=== PATIENT | female | born 1990 | race Caucasian/White ===

== ENCOUNTER 2018-03-25 14:30 | Emergency (ER) | payer BC ==
[2018-03-25 14:51] VITALS: BP 136/77; PULSE 90; TEMP 98.6; BMI 23.2
[2018-03-25 15:02] LABS: URINE APPEARANCE Clear; URINE BILIRUBIN Negative (NEGATIVE); URINE GLUCOSE (UA) Negative (NEGATIVE); URINE KETONE 1+ (NEGATIVE); URINE LEUK ESTERASE Negative (NEGATIVE); URINE NITRITE Negative (NEGATIVE); URINE PROTEIN Negative (NEGATIVE); URINE UROBILINOGEN 0.2 (0.2-1.0)
[2018-03-25 15:04] LABS: HCG,QUALITATIVE URINE NEGATIVE; URINE COLOR YELLOW
--- NOTE | 2018-03-25 15:06 | PDOC ---
History of Present Illness - General History Source: Patient Exam Limitations: No Limitations - History of Present Illness Initial Comments: 03/25/18 16:55 The patient is a 28 year old female with significant past medical history of chronic lower back pain who presents to the emergency department for evaluation of chest pain and SOB x 3 days. The patient reports intermittent episodes of left sided chest pain. She describes a pressure in left chest with no numbness, tingling, diaphoresis or radiation. 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 The patients PCP ( Dr. Gomez) referred her to visit the ED to rule out PE as the pain had also become pleuritic. The patient reports associated symptoms of SOB, lightheadedness, and nausea. She reports that the pain is not illicited by exertion and there are no exacerbating or alleviating factors. The patient has been taking control for 8 years, but denies taking any medication to alleviate symptoms. The patient reports that she has been under a significant amount of stress due to relationship issues with her boyfriend and the of her father suddenly 2 years ago which she has not coped with - however she does not believe stress or anxiety is the cause of her CP. She is concerned that her father was healthy and did not have any risk factors but had a sudden [place] and that she may suffer the same fate. Denies recent travel/immobilization The patient denies changes in vision, headache, chills, vomiting, diarrhea, and constipation. Denies dysuria, frequency, urgency, and hematuria. Allergies: NKDA Family History: Father: from [place] (age 62); Mother: HTN Surgical history: Breast Implants (2016) Social history: Social smoking and alcohol consumption. No reported drug use. PCP: Santi Gomez ([phone]) <Donald Gonzales - Last Filed: 03/25/18 17:17> <Myron Lemus - Last Filed: 03/25/18 18:38> - General Chief Complaint: Chest Pain Stated Complaint: POSSIBLE PE Time Seen by Provider: 03/25/18 14:51 Past History <Donald Gonzales - Last Filed: 03/25/18 17:17> - Past Medical History COPD: No DVT: No - Suicide/Smoking/Psychosocial Hx Smoking History: Never smoked Have you smoked in the past 12 months: Yes Number of Cigarettes Smoked Daily: 1 Information on smoking cessation initiated: Yes Hx Alcohol Use: Yes Drug/Substance Use Hx: No Substance Use Type: None <Myron Lemus - Last Filed: 03/25/18 18:38> - Past Medical History Allergies/Adverse Reactions: Allergies Allergy/AdvReac Type Severity Reaction Status Date / Time No Known Allergies Allergy Verified 03/25/18 14:54 Home Medications: Ambulatory Orders NK [No Known Home Medication] 03/17/15 Review of Systems - Review of Systems Able to Perform ROS?: Yes Comments:: GENERAL/CONSTITUTIONAL: (+)Fever. No chills. No weakness. HEAD, EYES, EARS, NOSE AND THROAT: No change in vision. No ear pain or discharge. No sore throat. GASTROINTESTINAL: (+)Nausea. No vomiting, diarrhea or constipation. GENITOURINARY: No dysuria, frequency, or change in urination. CARDIOVASCULAR: (+)Shortness of breath. No chest pain. RESPIRATORY: No cough, wheezing, or hemoptysis. MUSCULOSKELETAL: (+)Left sided chest pain. No neck or back pain. SKIN: No rash NEUROLOGIC: No headache, vertigo, loss of consciousness, or change in strength/ sensation. ENDOCRINE: No increased thirst. No abnormal weight change. HEMATOLOGIC/LYMPHATIC: No anemia, easy bleeding, or history of blood clots. ALLERGIC/IMMUNOLOGIC: No hives or skin allergy. <Donald Gonzales - Last Filed: 03/25/18 17:17> *Physical Exam - Vital Signs Last Vital Signs Temp Pulse Resp BP Pulse Ox 98.6 F 90 16 136/77 99 03/25/18 14:40 03/25/18 14:40 03/25/18 14:40 03/25/18 14:40 03/25/18 14:40 - Physical Exam Comments: GENERAL: Awake, alert, and fully oriented, in no acute distress HEAD: No signs of trauma EYES: PERRLA, EOMI, sclera anicteric, conjunctiva clear ENT: Auricles normal inspection, hearing grossly normal, nares patent, oropharynx clear without exudates. Moist mucosa NECK: Normal ROM, supple, no lymphadenopathy, JVD, or masses LUNGS: Breath sounds equal, clear to auscultation bilaterally. No wheezes, and no crackles HEART: Regular rate and rhythm, normal S1 and S2, no murmurs, rubs or gallops ABDOMEN: Soft, nontender, normoactive bowel sounds. No guarding, no rebound. No masses EXTREMITIES: Normal range of motion, no edema. No clubbing or cyanosis. No cords , erythema, or tenderness BACK: No midline spinal tenderness in cervical/thoracic/lumbar region NEUROLOGICAL: Normal speech, cranial nerves intact, negative pronator drift, 5/ 5 strength in all 4 extremities, normal sensation to light touch in all 4 extremities, normal cerebellar exam, normal gait, normal reflexes and tone SKIN: Warm, Dry, normal turgor, no rashes or lesions noted. <Donald Gonzales - Last Filed: 03/25/18 17:17> - Vital Signs Last Vital Signs Temp Pulse Resp BP Pulse Ox 98.6 F 90 16 136/77 99 03/25/18 14:40 03/25/18 14:40 03/25/18 14:40 03/25/18 14:40 03/25/18 14:40 <Myron Lemus - Last Filed: 03/25/18 18:38> Heart Score/ECG Review - History History: Slightly suspicious - Electrocardiogram EKG: Non specific repolarization disturbance - Age Age: </= 45 - Risk Factors Risk Factors Heart Score: Yes Positive family hx of cardiac disease Based on the list above the patient has:: 1-2 risk factors - Troponin Troponin: </= normal limit - Score Heart Score - Total: 2 #1 03/25/18 17:17 Twelve-lead EKG was performed and reviewed by me. Normal sinus rhythm, rate 89. Normal axis and intervals. No ST elevations. T wave flattening in leads III and aVF <Myron Lemus - Last Filed: 03/25/18 18:38> ED Treatment Course - LABORATORY CBC & Chemistry Diagram: 03/25/18 15:05 03/25/18 15:05 - ADDITIONAL ORDERS Additional order review: Laboratory Results 03/25/18 03/25/18 03/25/18 15:05 15:05 15:05 Sodium 135 L Potassium 3.5 Chloride 105 Carbon Dioxide 24 Anion Gap 6 L BUN 12 Creatinine < 0.8 Creat Clearance w eGFR > 60 Random Glucose 83 Calcium 8.7 Total Bilirubin 1.0 AST 18 ALT 15 Alkaline Phosphatase 44 Troponin I < 0.03 B-Natriuretic Peptide 50.08 Total Protein 7.0 Albumin 4.3 Urine Color Urine Appearance Urine pH Ur Specific [place] Urine Protein Urine Glucose (UA) Urine Ketones Urine Blood Urine Nitrite Urine Bilirubin Urine Urobilinogen Ur Leukocyte Esterase Urine HCG, Qual 03/25/18 14:49 Sodium Potassium Chloride Carbon Dioxide Anion Gap BUN Creatinine Creat Clearance w eGFR Random Glucose Calcium Total Bilirubin AST ALT Alkaline Phosphatase Troponin I B-Natriuretic Peptide Total Protein Albumin Urine Color Yellow Urine Appearance Clear Urine pH 7.0 Ur Specific [place] 1.020 Urine Protein Negative Urine Glucose (UA) Negative Urine Ketones 1+ H Urine Blood 2+ H Urine Nitrite Negative Urine Bilirubin Negative Urine Urobilinogen 0.2 Ur Leukocyte Esterase Negative Urine HCG, Qual Negative 03/25/18 15:05 RBC 4.51 MCV 84.5 MCHC 34.5 RDW 11.8 MPV 7.7 Neutrophils % 67.9 Lymphocytes % 26.4 Monocytes % 5.1 Eosinophils % 0.3 Basophils % 0.3 <Donald Gonzales - Last Filed: 03/25/18 17:17> - LABORATORY CBC & Chemistry Diagram: 03/25/18 15:05 03/25/18 15:05 - ADDITIONAL ORDERS Additional order review: Laboratory Results 03/25/18 14:49 Urine Color Yellow Urine Appearance Clear Urine pH 7.0 Ur Specific [place] 1.020 Urine Protein Negative Urine Glucose (UA) Negative Urine Ketones 1+ H Urine Blood 2+ H Urine Nitrite Negative Urine Bilirubin Negative Urine Urobilinogen 0.2 Ur Leukocyte Esterase Negative Urine HCG, Qual Negative <Myron Lemus - Last Filed: 03/25/18 18:38> Medical Decision Making - Medical Decision Making Consulted with Dr. Gomez at 17:15. <Donald Gonzales - Last Filed: 03/25/18 17:17> - Medical Decision Making 03/25/18 16:21 28-year-old female with no significant past medical history presents the emergency department with 3 days of intermittent left-sided chest pain associated with shortness of breath. Patient was sent in by her primary physician Dr. Gomez for a CTA to rule out pulmonary embolism given newly pleuritic nature of chest pain. Vitals unremarkable. Exam unremarkable. Differential includes but not limited to pulmonary embolism versus acute coronary syndrome versus pneumonia versus musculoskeletal pain versus anxiety. HS is 2. Plan: -labs -upt -cxr -cta -reassess -discuss w Dr. Gomez 03/25/18 17:10 Labs wnl, including neg trop CTA neg for PE CXR clear Possible MSK pain vs anxiety Placed a call to Dr. Gomez, awaiting a call back to discuss 03/25/18 18:[address] Gomez who wants the patient to follow-up with him within the next week. Patient feels well, requests discharge home. I discussed the physical exam findings, ancillary test results and final diagnoses with the patient. I answered all of the patient's questions. The patient was satisfied with the care received and felt comfortable with the discharge plan and treatment plan. The patient will call their primary care physician within 24 hours to arrange follow-up and will return to the Emergency Department with any new, persistent or worsening symptoms. <Myron Lemus - Last Filed: 03/25/18 18:38> *DC/Admit/Observation/Transfer - Attestations Scribe Attestion: Documentation prepared by Donald Gonzales, acting as medical aide for Myron Lemus MD. <Donald Gonzales - Last Filed: 03/25/18 17:17> - Discharge Dispostion Admit: No - Attestations Physician Attestion: 03/25/18 17:16 I, Dr. Myron Lemus MD, attest that this document has been prepared under my direction and personally reviewed by me in its entirety. I further attest, that it accurately reflects all work, treatment, procedures and medical decision -making performed by me. <Myron Lemus - Last Filed: 03/25/18 18:38> Diagnosis at time of Disposition: Chest pain - Discharge Dispostion Disposition: HOME Condition at time of disposition: Good - Referrals Referrals: Santi Gomez MD [Primary Care Provider] - - Patient Instructions Printed Discharge Instructions: DI for Chest Pain Additional Instructions: As discussed, follow-up with Dr. Gomez within 3-4 days. Return to the emergency department immediately if you have any new, worsening or concerning symptoms. - Post Discharge Activity
[2018-03-25 15:25] LABS: BASO % 0.3 % (0-2.0); EOS % 0.3 % (0-4.5); HEMATOCRIT 38.1 % (32.4-45.2); HEMOGLOBIN 13.1 GM/dl (10.7-15.3); LYMPH % 26.4 % (8-40); MCH 29.2 pg (25.7-33.7); MCHC 34.5 g/dl (32.0-36.0); MEAN CELL VOLUME 84.5 fl (80-96); MEAN PLT VOLUME 7.7 fl (7.5-11.1); MONO % 5.1 % (3.8-10.2); NEUT % 67.9 % (42.8-82.8); PLATELET COUNT 268 K/MM3 (134-434); RBC 4.51 M/mm3 (3.60-5.2); RDW 11.8 % (11.6-15.6); WHITE BLOOD COUNT 7.6 K/mm3 (4.0-10.8)
[2018-03-25 15:32] LABS: ALBUMIN 4.3 g/dl (3.5-5.0); ALK PHOS 44 U/L (32-92); ANION GAP 6 (8-16); BLOOD UREA NITROGEN 12 mg/dl (7-18); CALCIUM 8.7 mg/dl (8.4-10.2); CHLORIDE 105 mmol/L (98-107); CO2 24 mmol/L (22-28); GLUCOSE,RANDOM 83 mg/dl (74-106); POTASSIUM 3.5 mmol/L (3.5-5.1); SGOT/AST 18 U/L (10-42); SGPT/ALT 15 U/L (10-40); SODIUM 135 mmol/L (136-145)
[2018-03-25 15:47] LABS: CREATININE < 0.8 mg/dl (0.6-1.3)
[2018-03-25 17:54] LABS: URINE BACTERIA FEW /hpf (NEGATIVE); URINE WBC 0-2 (0-5)
--- NOTE | 2018-03-27 14:34 | EKG ---
Test Reason : Blood Pressure : / mmHG Vent. Rate : 089 BPM Atrial Rate : 089 BPM P-R Int : 136 ms QRS Dur : 080 ms QT Int : 362 ms P-R-T Axes : 055 062 021 degrees QTc Int : 440 ms NORMAL SINUS RHYTHM NORMAL ECG WHEN COMPARED WITH ECG OF 17-MAR-2015 10:43, ST NO LONGER ELEVATED IN INFERIOR LEADS Confirmed by MD Johnny, Adrian ([id number]) on 03/27/2018 2:34:11 PM Referred By: PIA Confirmed By:Adrian Turner MD
== END 2018-03-25 17:27 | disposition home or self-care (01) ==
LOC: FER 14:30
DX: R07.9 Chest pain, unspecified (principal); Z87.891 Personal history of nicotine dependence
CPT/HCPCS: 36415; 71046-TC-FY; 71275-TC; 80053; 81003; 81015; 83880; 84484; 84703; 85025; 93005; 99284-25

== ENCOUNTER 2021-05-14 04:05 | Inpatient (IN) | payer BC ==
[~2021-05-14 04:05] MED LIST: DEXTROSE 5%-LACTATED RINGERS 1,000 ML IV SCH
[2021-05-14 05:29] LABS: BASO % 0.1 % (0-2.0); EOS % 0.1 % (0-4.5); HEMATOCRIT 36.3 % (32.4-45.2); HEMOGLOBIN 11.8 GM/dL (10.7-15.3); LYMPH % 6.7 % (8-40); MCH 26.6 pg (25.7-33.7); MCHC 32.4 g/dl (32.0-36.0); MEAN CELL VOLUME 82.1 fl (80-96); MEAN PLT VOLUME 8.5 fl (7.5-11.1); MONO % 3.3 % (3.8-10.2); NEUT % 89.8 % (42.8-82.8); PLATELET COUNT 234 10^3/uL (134-434); RBC 4.42 M/mm3 (3.60-5.2); RDW 14.2 % (11.6-15.6); WHITE BLOOD COUNT 15.6 K/mm3 (4.0-10.0)
[2021-05-14] MEDS ORDERED: BUTORPHANOL TARTRATE 1 MG/ML VIAL IVPB ONE (05:29)
[2021-05-14] MEDS ORDERED: PROMETHAZINE HCL 25 MG/1 ML VIAL ONE (05:29)
[2021-05-14] MEDS ORDERED: PROMETHAZINE HCL 25 MG/1 ML VIAL IVPB ONE (05:29)
[2021-05-14] MEDS ORDERED: BUTORPHANOL TARTRATE 2 MG/ML VIAL ONE (05:29)
[2021-05-14 05:38] LABS: INR 0.94 (0.83-1.09); PROTHROMBIN TIME (PATIENT) 11.4 SEC (9.7-13.0)
[2021-05-14 05:41] LABS: ACTIVATED PTT 29.3 SECONDS (25.2-36.5)
[2021-05-14 05:48] LABS: CALCIUM 8.6 mg/dL (8.5-10.1)
[2021-05-14 05:49] LABS: BLOOD UREA NITROGEN 12.3 mg/dL (7-18)
[2021-05-14 05:51] LABS: CREATININE 0.6 mg/dL (0.55-1.3)
[2021-05-14 06:07] VITALS: BMI 31.9
[2021-05-14] MEDS ORDERED: FENTANYL/BUPIVACAINE/NS/PF - PCEA - 50 ML DISP.SYRIN EP ONE (08:56)
[2021-05-14] MEDS ORDERED: PCA PUMP NR ONE (08:56)
[2021-05-14] MEDS ORDERED: BUPIVACAINE HCL/PF 0.25% (2.5MG/ML) 10 ML VIAL ONE (09:19)
[2021-05-14] MEDS ORDERED: ELECTROLYTE-148 SOLN 1,000 ML IV SCH (09:30)
[2021-05-14] MEDS ORDERED: NALOXONE HCL 0.4 MG/ML VIAL IVPUSH PRN (10:14)
[2021-05-14] MEDS ORDERED: FENTANYL/BUPIVACAINE/NS/PF - PCEA - 50 ML DISP.SYRIN EP SCH (10:15)
[2021-05-14] MEDS ORDERED: OXYTOCIN 30 UNITS in 0.9% NS 30 UNIT/500 ML INFUS.BAG IVPB ONE (10:50)
[2021-05-14] MEDS ORDERED: OXYTOCIN 20 UNITS in 0.9% NS 20 UNIT/1,000 ML INFUS.BAG IV ONE (11:24)
[2021-05-14] MEDS ORDERED: ACETAMINOPHEN 325 MG TABLET (FP) PO PRN (12:47)
[2021-05-14] MEDS ORDERED: BISACODYL 10 MG SUPP.RECT RC PRN (12:47)
[2021-05-14] MEDS ORDERED: WITCH HAZEL 50% (TUCKS) 40 PAD/JAR PAD TP PRN (12:47)
[2021-05-14] MEDS ORDERED: IBUPROFEN 600 MG TABLET (FP) PO PRN (12:47)
[2021-05-14] MEDS ORDERED: BENZOCAINE 28 GM HEMORRHOIDAL OINTMENT TP PRN (12:47)
[2021-05-14] MEDS ORDERED: BENZOCAINE 20% 57 GM BOTTLE TP PRN (12:47)
[2021-05-14] MEDS ORDERED: METHYLERGONOVINE MALEATE 0.2 MG/1 ML AMP IM PRN (12:47)
[2021-05-14] MEDS ORDERED: OXYTOCIN 20 UNITS in 0.9% NS 20 UNIT/1,000 ML INFUS.BAG IV SCH (13:00)
[2021-05-14 13:51] LABS: CORD BASE EXCESS -10.9 mmol/L (0-2); CORD BASE EXCESS -9.5 mmol/L (0-2); CORD HCO3 15.2 mmHg (20-29); CORD HCO3 19.5 mmHg (20-29); CORD PCO2 34.8 mmHg (30-78); CORD PCO2 54.7 mmHg (30-78); CORD pH 7.171 (7.14-7.44); CORD pH 7.257 (7.14-7.44)
[2021-05-15 08:48] LABS: BASO % 0.6 % (0-2.0); EOS % 0.3 % (0-4.5); HEMATOCRIT 33.9 % (32.4-45.2); HEMOGLOBIN 11.1 GM/dL (10.7-15.3); MCH 26.9 pg (25.7-33.7); MCHC 32.6 g/dl (32.0-36.0); MEAN CELL VOLUME 82.3 fl (80-96); MEAN PLT VOLUME 8.7 fl (7.5-11.1); MONO % 4.3 % (3.8-10.2); NEUT % 77.8 % (42.8-82.8); PLATELET COUNT 207 10^3/uL (134-434); RBC 4.12 M/mm3 (3.60-5.2); RDW 14.8 % (11.6-15.6); WHITE BLOOD COUNT 13.3 K/mm3 (4.0-10.0)
[2021-05-15] MEDS: PRENATAL VITAMINS W/ FOLIC ACID TABLET (FP) PO SCH (09:44)
[2021-05-15] MEDS ORDERED: SENNOSIDES/DOCUSATE COMBO (SENNA PLUS) TABLET (UD) PO PRN (22:00)
[2021-05-16] MEDS: PRENATAL VITAMINS W/ FOLIC ACID TABLET (FP) PO SCH (09:04)
[2021-05-16 13:42] VITALS: BP 108/70; PULSE 89; TEMP 98.1
== END 2021-05-16 11:20 | disposition home or self-care (01) | DRG 807 ==
LOC: JLDR 04:05 → J3W 14:20
PROVIDERS: ADMIT Obstetrics & Gynecology; ATTEND Obstetrics & Gynecology
PROC: 10E0XZZ Delivery of Products of Conception, External Approach (ICD-10-PCS; principal; 2021-05-14)
PROC: 0HQ9XZZ Repair Perineum Skin, External Approach (ICD-10-PCS; 2021-05-14)
DX: O70.0 First degree perineal laceration during delivery (principal); Z37.0 Single live birth; Z3A.39 39 weeks gestation of pregnancy; Z86.16 Personal history of COVID-19
CPT/HCPCS: 36415; 36600; 59025; 59409; 80048; 82803; 85025; 85610; 85730; 86780; 86850; 86900; 86901; C9803; U0003; U0005

== ENCOUNTER 2023-04-18 19:33 | Emergency (ER) | payer BC ==
[2023-04-18 19:42] VITALS: BP 121/84; PULSE 88; RESP 16; TEMP 98.8; BMI 24.3
[2023-04-18 20:39] LABS: HEMATOCRIT 37.7 % (32.4-45.2); HEMOGLOBIN 12.8 G/dL (10.7-15.3); MCH 28.4 pg (25.7-33.7); MEAN CELL VOLUME 83.7 fl (80-96); MEAN PLT VOLUME 7.7 fl (7.5-11.1); PLATELET COUNT 281.1 10^3/uL (134-434); RBC 4.51 10^6/uL (3.60-5.2); RDW 14.5 % (11.6-15.6); WHITE BLOOD COUNT 8.5 10^3/uL (4.0-10.8)
[2023-04-18 20:46] LABS: EPITHELIAL CELLS FEW /hpf; URINE MUCUS 1+
[2023-04-18 20:47] LABS: ALBUMIN 3.6 g/dl (3.4-5.0); BILIRUBIN,TOTAL 0.4 mg/dl (0.2-1); CALCIUM 9.1 mg/dl (8.5-10); CREATININE 0.6 mg/dl (0.55-1.3); POTASSIUM 4.3 mmol/L (3.5-5.1); TOT PROT 6.9 g/dl (6.4-8.2)
== END 2023-04-19 00:21 | disposition home or self-care (01) ==
LOC: FER 19:33
DX: R10.84 Generalized abdominal pain (principal)
CPT/HCPCS: 36415; 74176-TC; 80053; 81003; 81015; 81025; 85027; 87086; 99284-25

== ENCOUNTER 2023-04-19 07:58 | Day surgery (SDC) | payer BC ==
[2023-04-19 08:05] VITALS: BMI 24.3
[2023-04-19 09:41] LABS: BASO % 0.7 % (0-2.0); EOS % 1.2 % (0-4.5); HEMATOCRIT 38.1 % (32.4-45.2); HEMOGLOBIN 12.7 GM/dL (10.7-15.3); LYMPH % 22.4 % (8-40); MCHC 33.2 g/dl (32.0-36.0); MEAN CELL VOLUME 81.4 fl (80-96); MONO % 5.4 % (3.8-10.2); NEUT % 70.3 % (42.8-82.8); PLATELET COUNT 317 10^3/uL (134-434); RBC 4.68 M/mm3 (3.60-5.2); RDW 13.7 % (11.6-15.6); WHITE BLOOD COUNT 7.6 K/mm3 (4.0-10.0)
[2023-04-19 09:53] LABS: POTASSIUM 4.4 mmol/L (3.5-5.1)
[2023-04-19 09:54] LABS: INR 1.11 (0.83-1.09); PROTHROMBIN TIME (PATIENT) 12.9 SEC (9.7-13.0)
[2023-04-19 09:55] LABS: CALCIUM 9.3 mg/dL (8.5-10.1)
[2023-04-19 09:56] LABS: ALBUMIN 3.6 g/dl (3.4-5.0)
[2023-04-19 09:59] LABS: CREATININE 0.6 mg/dL (0.55-1.3)
[2023-04-19 10:00] LABS: BILIRUBIN,TOTAL 0.8 mg/dL (0.2-1); TOT PROT 7.3 g/dl (6.4-8.2)
[2023-04-19] MEDS ORDERED: LACTATED RINGERS SOLUTION 1,000 ML/1,000 ML INFUS.BAG IV SCH (10:45)
[2023-04-19] MEDS ORDERED: AMPICILLIN NA/SULBACTAM NA 3 GM in SODIUM CHLORIDE 100 ML IVPB SCH (11:00)
[2023-04-19] MEDS: AMPICILLIN NA/SULBACTAM NA 3 GM in SODIUM CHLORIDE 100 ML IVPB SCH ×3 (11:49→20:45)
[2023-04-19] MEDS ORDERED: KETOROLAC TROMETHAMINE 15 MG/ML VIAL IVPUSH ONE (13:46)
[2023-04-19] MEDS ORDERED: BENZOCAINE/MENTH/CETYLPYRD CL 1 EACH LOZENGE MM PRN ×2 (15:46→19:11)
[2023-04-19] MEDS ORDERED: MIDAZOLAM HCL 2 MG/2 ML SINGLE DOSE VIAL ONE (17:13)
[2023-04-19] MEDS ORDERED: ROCURONIUM BROMIDE 50 MG/5 ML SYRINGE ONE ×2 (17:24→17:44)
[2023-04-19] MEDS ORDERED: BUPIVACAINE HCL/PF 0.5% (5MG/ML) 10 ML VIAL ONE (17:32)
[2023-04-19] MEDS ORDERED: BUPIVACAINE HCL/PF 0.5% (5 MG/ML) 30 ML VIAL IJ ONE (17:40)
[2023-04-19] MEDS ORDERED: PROPOFOL 40 ML ONE (17:44)
[2023-04-19] MEDS ORDERED: NEOSTIGMINE METHYLSULFATE 0.5 MG/1 ML - 10 ML MDV ONE (18:04)
[2023-04-19] MEDS ORDERED: ONDANSETRON 4 MG/2 ML VIAL IVPUSH PRN ×2 (18:43→19:11)
[2023-04-19] MEDS ORDERED: PROMETHAZINE HCL 25 MG/1 ML VIAL IVPB PRN ×2 (18:43→19:11)
[2023-04-19] MEDS ORDERED: LACTATED RINGERS SOLUTION 1,000 ML IV SCH ×2 (18:45→19:11)
[2023-04-19] MEDS ORDERED: ACETAMINOPHEN INJECTION 100 ML IVPB ONE (19:27)
[2023-04-19] MEDS: oxyCODONE HCL 5 MG TABLET PO PRN (20:14)
[2023-04-19] MEDS: LACTATED RINGERS SOLUTION 1,000 ML/1,000 ML INFUS.BAG IV SCH (20:27)
[2023-04-19] MEDS ORDERED: DOCUSATE SODIUM 100 MG CAPSULE (FP) PO PRN (21:33)
[2023-04-20] MEDS ORDERED: KETOROLAC TROMETHAMINE 30 MG/1 ML VIAL IVPUSH PRN (02:00)
[2023-04-20] MEDS: AMPICILLIN NA/SULBACTAM NA 3 GM in SODIUM CHLORIDE 100 ML IVPB SCH (03:05)
[2023-04-20] MEDS ORDERED: ACETAMINOPHEN 1000 MG/100 ML BAG IVPB PRN (04:00)
[2023-04-20] MEDS: LACTATED RINGERS SOLUTION 1,000 ML/1,000 ML INFUS.BAG IV SCH (05:27)
[2023-04-20] MEDS: oxyCODONE HCL 5 MG TABLET PO PRN (08:49)
[2023-04-20 08:53] LABS: BASO % 0.2 % (0-2.0); EOS % 0.1 % (0-4.5); HEMATOCRIT 32.2 % (32.4-45.2); HEMOGLOBIN 10.9 GM/dL (10.7-15.3); LYMPH % 18.2 % (8-40); MCH 27.8 pg (25.7-33.7); MCHC 33.9 g/dl (32.0-36.0); MEAN CELL VOLUME 81.9 fl (80-96); MEAN PLT VOLUME 8.3 fl (7.5-11.1); MONO % 6.9 % (3.8-10.2); NEUT % 74.6 % (42.8-82.8); PLATELET COUNT 266 10^3/uL (134-434); RBC 3.93 M/mm3 (3.60-5.2); RDW 13.3 % (11.6-15.6); WHITE BLOOD COUNT 8.3 K/mm3 (4.0-10.0)
[2023-04-20 09:10] LABS: POTASSIUM 4.2 mmol/L (3.5-5.1)
[2023-04-20 09:17] LABS: BLOOD UREA NITROGEN 11.8 mg/dL (7-18); CALCIUM 8.7 mg/dL (8.5-10.1)
[2023-04-20 09:21] LABS: CREATININE 0.6 mg/dL (0.55-1.3)
[2023-04-20 12:21] VITALS: RESP 16; TEMP 97.8
[2023-04-20 17:27] VITALS: BP 105/50; PULSE 80
== END 2023-04-20 15:47 | disposition home or self-care (01) ==
LOC: JER 07:58 → UNDOADMOB 09:10 → INTOOBSV 09:10 → JERBED 09:10 → UNDOADMOB 10:41 → J5S 11:14 → JERBED 11:14 → JASUSAT 04-20 08:53 → J5S 04-20 09:17 → JASUSAT 04-20 15:47
PROVIDERS: ATTEND Internal Medicine
PROC: 0DTJ4ZZ Resection of Appendix, Percutaneous Endoscopic Approach (ICD-10-PCS; principal; 2023-04-20)
DX: K35.80 Unspecified acute appendicitis (principal)
CPT/HCPCS: 0241U-QW; 36415; 80048; 80053; 84703; 85025; 85610; 85730; 86850; 86900; 86901; 88304-TC; 88312-TC; 88313-TC; 93005; 93010; 94760; 99285-25